=== PATIENT | female | born 1980 | race African-American/Black ===

== ENCOUNTER 2023-11-23 22:21 | Emergency (ER) | payer SELFPAY ==
[2023-11-23 22:21] VITALS: BMI 24.1
[2023-11-23 22:31] VITALS: BP 142/80
[2023-11-23 22:52] LABS: Hematocrit 34.3 % (37.0-47.0); Hemoglobin 11.4 g/dL (12.0-16.0); Mean Corp Hgb Conc. 33.2 g/dL (33.0-37.0); Mean Corpuscular Hgb 25.9 pg (27.0-31.0); Mean Platelet Volume 9.9 fL (7.4-10.4); Platelet Count 401 10^3/uL (130-400); Red Cell Dist. Width 14.7 % (11.5-14.5); White Blood Cell Count 6.5 10^3/uL (4.8-10.8)
[2023-11-23 23:02] LABS: HCG, Serum Qualitative Screen Negative
[2023-11-23 23:12] LABS: Blood Urea Nitrogen 10 mg/dl (7-17); Calcium 10.2 mg/dl (8.4-10.2); Carbon Dioxide 21 mmol/L (22-30); Chloride 106 mmol/L (98-107); Glucose 98 mg/dl (70-99); Potassium 4.5 mmol/L (3.5-5.1); Sodium 138 mmol/L (135-145); eGFR > 60.00
--- NOTE | 2023-11-24 01:20 | ED.BBFEXPP ---
HPI- Blood/Body Fluid Exposure
General
Chief Complaint: Blood and Body Fluid Exposure
Source: patient
Exam Limitations: none
Time Seen by Provider: 11/24/23 01:03
Nursing documentation reviewed up to this point in time: agreed with
Travel History
Have you had any contact with someone who has COVID-19?: No
Do you have any symptoms of coronavirus? Fever > 100 degrees, chills, cough, shortness of breath, sore throat, loss of taste or smell, muscle aches, or headache?: No
History of Present Illness
Is this injury a work related problem?: No
Body fluid exposure: by needle stick
Needle was: contaminated small needle
Source of contamination is: unknown
Exposure deemed significant: Yes
Initial Comments:
This is a 43-year-old woman who states while she was in a public restroom in a [employer] this afternoon she reached for toilet paper that was sitting on top of the needle box in toilet stall and inadvertently suffered a puncture wound
from a needle that was jutting out of the needle box. Puncture wound to her right distal index digit. Injury occurred around 4 PM.
She spoke with a manager corporate communications of the store and the manager corporate communications did note that there was a fair amount of substance use/IV drug abuse in the area.
Patient admits to mild pain distal anterior right index finger and is concerned for possible foreign body, concerned that the needle broke off in her finger.
She has history of hypothyroidism maintained on methimazole and propranolol.
Past Medical History Pediatric
Past Medical History
Past Medical History Pediatric: other (Hyperthyroidism)
Past Surgical History
Past Surgical History Pediatric: other ( x 2, breast reduction with abdominoplasty)
Immunizations
Immunizations up to date: Yes (Patient reports up-to-date with Tdap as well as all routine/recommended imm)
Family/Social History
Family History: other (Noncontributory)
Tobacco: Non-smoker
Alcohol: Occasional (rare)
Drug: None
Pediatric Physical Exam
Physical Exam
Pediatric Physical Exam:
PHYSICAL EXAMINATION:
General: 43-year-old woman appears her stated age, bright and alert, pleasant, appears in no acute distress. Easily communicative.
Neuro: alert and oriented. no focal neurological deficits
Psychiatric: well kept. interactive and cooperative
Musculoskeletal: [Right index digit distal anterior aspect has a minute, barely perceptible puncture wound. There is no bleeding, no soft tissue swelling, no erythema. No palpable foreign body. There is full digit and hand
range of motion. Strength and sensation intact. Skin is otherwise warm and dry, normal color, good turgor.]
Course
Orders/Labs/Results
Orders:
Orders
11/23/23 22:30
Pt has had a significant HIV exposure? Routine
HIV Exposure is significant?: Yes
11/23/23 22:31
Test Result ONCE
11/23/23 22:40
BMP [Basic Metabolic Panel] Urgent
Complete Blood Count/No Diff Urgent
HCG, Serum Qualitative Screen Urgent
HIV Combo Urgent
Hepatitis B Surface Antibody Urgent
Hepatitis B Surface Antigen Urgent
Hepatitis C Antibody Urgent
11/24/23 01:19
Finger(s)/Thumb 2 View Rt [CR Finger(s)/thumb Min 2 Vw Rt] Urgent
Comment:
Reason For Exam: needle puncture wound R distal index digit
11/24/23 01:44
Emtricitabine/Tenofovir [Truvada Tablet] 1 tablet PO NOW STA
Raltegravir Potassium [Isentress] 400 mg PO NOW STA
11/24/23 01:46
Pt has had a significant HIV exposure? Routine
HIV Exposure is significant?: Yes
Comment: nonoccupational needle stick injury 4 pm yesterday 11/22
Abnormal Lab Results
11/23/23
22:40
Hgb 11.4 L g/dL
(12.0-16.0)
Hct 34.3 L %
(37.0-47.0)
MCV 78.0 L fL
(81.0-99.0)
MCH 25.9 L pg
(27.0-31.0)
RDW 14.7 H %
(11.5-14.5)
Plt Count 401 H 10^3/uL
(130-400)
Carbon Dioxide 21 L mmol/L
(22-30)
11/23/23 22:40
11/23/23 22:40
Vital Signs
Initial and Last Documented VS:
Initial Vital Signs
Temp Pulse Resp BP Pulse Ox
98.1 F 62 18 142/80 98
11/23/23 22:31 11/23/23 22:31 11/23/23 22:31 11/23/23 22:31 11/23/23 22:31
Last Documented Vital Signs
Temp Pulse Resp BP Pulse Ox
98.1 F 62 18 133/93 94
11/23/23 22:31 11/24/23 02:46 11/24/23 02:46 11/24/23 02:46 11/24/23 02:46
MDM/Problems Addressed
Differential Diagnosis Includes:
Patient has suffered a non occupational needlestick injury that is deemed significant risk for HIV thus recommend postexposure prophylaxis.
Discussed potential side effects including GI side effects, potential for elevated liver enzymes, rare risk for bone marrow suppression.
She follows regularly with her primary care physician and we discussed the importance of follow-up regarding hepatitis B immunity status as she may require hepatitis B vaccination booster. Follow-up regarding HIV screen and surveillance as well as
hepatitis C screening.
Routine labs show very mild anemia otherwise unremarkable. Normal renal function. hCG negative.
Will plan to start 3 drug antiretroviral regimen and plan to continue this for total of 28 days.
Chronic conditions affecting care: Other (Hyperthyroidism)
*Radiology
Radiology exam reviewed: preliminary read by ED provider (No evidence of foreign body nor fracture right index digit.)
*Pulse Oximetry
Patient hypoxic: no
*Critical Care Note
Total Time (30-74mins, 75-104mins- exclusive of procedures): Not Applicable
ED Attending Note
-
Portions of this chart may have been created with voice recognition software.� Occasional wrong word or��sound alike� substitutions may have occurred due to the inherent limitations of voice recognition software.
Discharge Plan
Departure
Patient Disposition: Home (Routine Discharge)
Date of Disposition: 11/24/23
Time of Disposition: 02:32
Patient with high blood pressure during this ER visit?: No
Condition: Good
Discharge Problem:
Needle stick injury of finger of right hand
Instructions: Blood or body fluid exposure
Prescriptions:
New
emtricitabine-tenofovir (TDF) [Truvada] 200-300 mg tablet
1 tab PO DAILY Qty: 27 0RF
Isentress 400 mg tablet
400 mg PO BID Qty: 56 0RF
No Action
meclizine 25 MG tablet
25 mg PO QIDPRN PRN (Reason: dizziness) Qty: 30 0RF
diclofenac sodium 75 MG tablet,delayed release (DR/EC)
75 mg PO BID PRN (Reason: pain, take with food) Qty: 30 0RF
prednisone 20 MG tablet
20 mg PO BID Qty: 10 0RF
azithromycin 250 MG tablet
250 mg PO DAILY Qty: 6 0RF
Referrals:
Jin Way DO [Family Provider] - Call in 1-3 days for appt
Stand Alone Forms: Bl/Fluid Consent/Declination, Blood Body/Fluid Exposure
Interventions
Interventions:
*Risk Screen - Suicide Last Done: 11/23/23 22:31
*General Assessment Last Done: 11/23/23 23:59
*Neglect/Abuse Screening Last Done: 11/23/23 22:31
ED- Fall Risk Assessment Last Done: 11/24/23 00:35
*ED COVID-19 Vaccine History Last Done: 11/23/23 23:58
*Nursing Disposition Last Done: 11/24/23 02:46
ED-EENT Assessment Last Done: 11/24/23 02:00
ED-Skin Assessment Last Done: 11/24/23 00:00
Discharge Date and Time
Discharge Date/Time: 11/24/23 02:47
Print Language: SERBIAN
[2023-11-24] MEDS: TRUVADA TABLET 1 TABLET PO (01:58)
[2023-11-24] MEDS: ISENTRESS 400 MG PO (01:58)
[2023-11-24 02:04] VITALS: BP 133/93
[2023-11-24 02:46] VITALS: BP 133/93
[2023-11-24 04:41] LABS: Hepatitis B Surface Antigen Negative (Negative)
[2023-11-24 04:58] LABS: Hepatitis B Surface Antibody Negative; Hepatitis C Antibody Negative (Negative)
[2023-11-24 05:14] LABS: HIV Combo Negative (Negative)
== END 2023-11-24 02:47 | disposition home or self-care (01) ==
LOC: EMR 22:21
PROVIDERS: EMERGENCY PHYSICIAN Emergency Medicine; FAMILY PHYSICIAN Family Medicine
DX: S61.230A Puncture wound without foreign body of right index finger without damage to nail, initial encounter (principal); W46.1XXA Contact with contaminated hypodermic needle, initial encounter; Z77.21 Contact with and (suspected) exposure to potentially hazardous body fluids; Y92.89 Other specified places as the place of occurrence of the external cause; D64.9 Anemia, unspecified; E05.90 Thyrotoxicosis, unspecified without thyrotoxic crisis or storm; Z79.899 Other long term (current) drug therapy
CPT/HCPCS: 99283; 73140; 80048; 84703; 85027; 86706; 86803; 87340; 87389

== ENCOUNTER 2023-12-06 01:03 | Emergency (ER) | payer OTHER, SELFPAY ==
[2023-12-06 01:05] VITALS: BP 134/85
[2023-12-06] MEDS: REGLAN 10 MG IV (01:53)
[2023-12-06 01:56] VITALS: BP 111/74
[2023-12-06 02:00] VITALS: BP 117/70
[2023-12-06 02:03] LABS: % Basophils 0.8 % (0-2); % Eosinophils 2.1 % (0-6); % Immature Granulocytes 0.2 % (0-0.5); % Lymphocytes 68.6 % (20.5-51.1); % Monocytes 9.7 % (1.7-9.3); % Neutrophils 18.6 % (42.2-75.2); Absolute Basophils 0.1 10^3/uL (0-0.2); Absolute Eosinophils 0.1 10^3/uL (0-0.7); Absolute Lymphocytes 4.2 10^3/uL (1.2-3.4); Absolute Monocytes 0.6 10^3/uL (0.1-0.6); Absolute Neutrophils 1.1 10^3/uL (1.4-6.5); Hematocrit 31.1 % (37.0-47.0); Hemoglobin 10.6 g/dL (12.0-16.0); Mean Corp Hgb Conc. 34.1 g/dL (33.0-37.0); Mean Corpuscular Hgb 26.6 pg (27.0-31.0); Mean Corpuscular Volume 78.1 fL (81.0-99.0); Mean Platelet Volume 10.3 fL (7.4-10.4); Nucleated Red Blood Cells % 0 %; Platelet Count 301 10^3/uL (130-400); Red Blood Cell Count 3.98 10^6/uL (4.20-5.40); Red Cell Dist. Width 14.5 % (11.5-14.5); White Blood Cell Count 6.1 10^3/uL (4.8-10.8)
[2023-12-06 02:16] LABS: ALT (SGPT) 23 U/L (0-35); AST (SGOT) 31 U/L (14-36); Albumin 4.5 g/dl (3.5-5.0); Alkaline Phosphatase 136 U/L (38-126); Blood Urea Nitrogen 13 mg/dl (7-17); Calcium 9.7 mg/dl (8.4-10.2); Carbon Dioxide 21 mmol/L (22-30); Chloride 108 mmol/L (98-107); Glucose 112 mg/dl (70-99); Potassium 4.1 mmol/L (3.5-5.1); Sodium 138 mmol/L (135-145); Total Bilirubin 0.4 mg/dl (0.2-1.3); Total Protein 7.6 g/dl (6.3-8.2); eGFR > 60.00
--- NOTE | 2023-12-06 02:30 | ED.GENMED ---
History of Present Illness
General
Chief Complaint: Allergic Reaction
Source: patient
Exam Limitations: none
Time Seen by Provider: 12/06/23 01:26
Nursing documentation reviewed up to this point in time: agreed with
Travel History
Have you had any contact with someone who has COVID-19?: No
Do you have any symptoms of coronavirus? Fever > 100 degrees, chills, cough, shortness of breath, sore throat, loss of taste or smell, muscle aches, or headache?: No
History of Present Illness
History of Present Illness:
Patient to ED with complaint of nausea and vomiting. SHe was seen in ED on 11/22 after sustaining a needlestick to her finger while in [place]. Unknown needle linux systems administrator. SHe was placed on prophylatic meds for HIV and has been following with her PCP
and ID. Given RX for zofran but states this has not helped Brought self to ED for eval.
Past History
Past History
ED Past Medical History: Hyperthyroidism and Other (Low vitamin D)
ED Past Surgical History: (x2)
Social History
Tobacco: Non-smoker
Alcohol: Occasional (rare)
Drug: None
Personal:
Employment: Not employed
Family History
Family History: Other (Noncontributory)
Review of Systems
Review of Systems
Allergies reviewed?: Yes
All Other Systems: ROS reviewed and negative except as documented in HPI and ROS
Constitutional: Reports no symptoms
EENT: Reports no symptoms
Respiratory: Reports no symptoms
Cardiac: Reports no symptoms
ABD/GI: Reports nausea and vomiting
: Reports no symptoms
Musculoskeletal: Reports no symptoms
Skin: Reports no symptoms
Neurological: Reports no symptoms
Psychiatric: Reports no symptoms
Phy Exam
General Physical Exam
General Presentation: well appearing and no apparent distress
General age: appears stated age
General Skin: warm and dry
General Habitus: normal
General Mental: alert
Gastrointestinal Exam
Gastrointestinal Exam: non tender and soft
Musculoskeletal Exam
Musculoskeletal Exam: full ROM and neuro vasc intact
Skin Exam
Skin Exam: normal color, warm/dry and no rash
Psychiatric Exam
Psychiatric Exam: normal mood/affect
Course
Orders/Labs/Results
Orders:
Orders
12/06/23 01:41
Metoclopramide [Reglan] 10 mg IV NOW STA
12/06/23 01:49
Complete Blood Count/With Diff Urgent
Comprehensive Metabolic Panel Urgent
12/06/23 02:36
0.9% Sodium Chloride 1000 ml [Nss] 1,000 ml IV BOLUS
Abnormal Lab Results
12/06/23
01:49
RBC 3.98 L 10^6/uL
(4.20-5.40)
Hgb 10.6 L g/dL
(12.0-16.0)
Hct 31.1 L %
(37.0-47.0)
MCV 78.1 L fL
(81.0-99.0)
MCH 26.6 L pg
(27.0-31.0)
Absolute Neuts (auto) 1.1 L 10^3/uL
(1.4-6.5)
Absolute Lymphs (auto) 4.2 H 10^3/uL
(1.2-3.4)
Neutrophils % 18.6 L %
(42.2-75.2)
Lymphocytes % 68.6 H %
(20.5-51.1)
Monocytes % 9.7 H %
(1.7-9.3)
Chloride 108 H mmol/L
(98-107)
Carbon Dioxide 21 L mmol/L
(22-30)
Glucose 112 H mg/dl
(70-99)
Alkaline Phosphatase 136 H U/L
(38-126)
12/06/23 01:49
12/06/23 01:49
Vital Signs
Initial and Last Documented VS:
Initial Vital Signs
Temp Pulse Resp BP Pulse Ox
98.0 F 71 18 134/85 100
12/06/23 01:05 12/06/23 01:05 12/06/23 01:05 12/06/23 01:05 12/06/23 01:05
Last Documented Vital Signs
Temp Pulse Resp BP Pulse Ox
98.0 F 71 16 117/74 100
12/06/23 01:05 12/06/23 01:57 12/06/23 01:57 12/06/23 04:00 12/06/23 04:15
*Critical Care Note
Total Time (30-74mins, 75-104mins- exclusive of procedures): Not Applicable
Update Note
Update Note:
Given IVF and Reglan in dept. Labs reviewed. Mild decrease in hemaglobin. Chemistries unchanged. WIll change anti-emetic to compazine, encourage po fluids and she will follow up with PCP and ID on Friday. SHe is agreeable to plan.
ED Attending Note
-
Portions of this chart may have been created with voice recognition software.� Occasional wrong word or��sound alike� substitutions may have occurred due to the inherent limitations of voice recognition software.
Discharge Plan
Departure
Patient Disposition: Home (Routine Discharge)
Patient with high blood pressure during this ER visit?: No
Condition: Good
Covid-19: Not Applicable
Discharge Problem:
Nausea and vomiting
Instructions: Nausea and Vomiting, Adult (DC)
Prescriptions:
New
prochlorperazine maleate [Compazine] 10 mg tablet
10 mg PO Q8H PRN (Reason: nausea and vomiting) Qty: 20 0RF
No Action
meclizine 25 MG tablet
25 mg PO QIDPRN PRN (Reason: dizziness) Qty: 30 0RF
diclofenac sodium 75 MG tablet,delayed release (DR/EC)
75 mg PO BID PRN (Reason: pain, take with food) Qty: 30 0RF
prednisone 20 MG tablet
20 mg PO BID Qty: 10 0RF
azithromycin 250 MG tablet
250 mg PO DAILY Qty: 6 0RF
emtricitabine-tenofovir (TDF) [Truvada] 200-300 mg tablet
1 tab PO DAILY Qty: 27 0RF
Isentress 400 mg tablet
400 mg PO BID Qty: 56 0RF
Referrals:
Jin Way DO [Family Provider] - Follow up in 2-3 days
Activity Restrictions/Additional Instructions:
Stop zofran. May take Compazine 10mg every 8 hours as needed for nausea. FOllow up with infectious disease on Friday.
Interventions
Interventions:
*Risk Screen - Suicide Last Done: 12/06/23 02:51
*General Assessment Last Done: 12/06/23 02:51
*Neglect/Abuse Screening Last Done: 12/06/23 01:12
ED- Fall Risk Assessment Last Done: 12/06/23 02:51
*ED COVID-19 Vaccine History Last Done: 12/06/23 01:11
*Nursing Disposition Last Done: 12/06/23 04:32
ED- Cardiac Assessment Last Done: 12/06/23 02:51
ED- Pulmonary Assessment Last Done: 12/06/23 02:51
ED-Skin Assessment Last Done: 12/06/23 02:51
Discharge Date and Time
Discharge Date/Time: 12/06/23 04:36
Print Language: PORTUGUESE
[2023-12-06] MEDS: NSS 1000 IV (02:40)
[2023-12-06 03:00] VITALS: BP 103/54
[2023-12-06 04:00] VITALS: BP 117/74
== END 2023-12-06 04:36 | disposition home or self-care (01) ==
LOC: EMR 01:03
PROVIDERS: Nurse Practitioner; EMERGENCY PHYSICIAN Emergency Medicine; FAMILY PHYSICIAN Family Medicine
DX: R11.2 Nausea with vomiting, unspecified (principal)
CPT/HCPCS: 99284; 96374; 96361; 80053; 85025

== ENCOUNTER → 2024-05-27 11:12 | Outpatient (REF) | payer OTHER, SELFPAY | LOC: HWRAD 11:12 | PROVIDERS: ATTENDING PHYSICIAN Obstetrics & Gynecology; FAMILY PHYSICIAN Family Medicine | DX: D25.9 Leiomyoma of uterus, unspecified (principal) | CPT/HCPCS: 76830; 76856 ==

== ENCOUNTER → 2024-07-05 15:28 | Outpatient (REF) | payer OTHER, SELFPAY | LOC: MRI 3T 15:28 | PROVIDERS: ATTENDING PHYSICIAN Obstetrics & Gynecology; FAMILY PHYSICIAN Family Medicine | DX: D25.9 Leiomyoma of uterus, unspecified (principal) | CPT/HCPCS: 72197; A9575 ==

== ENCOUNTER 2024-07-23 04:04 | Emergency (ER) | payer OTHER, SELFPAY ==
[2024-07-23 04:05] VITALS: BP 133/92
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
== END 2024-07-23 06:54 | disposition home or self-care (01) ==
LOC: EMR 04:04
PROVIDERS: EMERGENCY PHYSICIAN Student in an Organized Health Care Education/Training Program; FAMILY PHYSICIAN Family Medicine
DX: F41.9 Anxiety disorder, unspecified (principal); R45.851 Suicidal ideations
CPT/HCPCS: 99283

== ENCOUNTER → 2024-10-05 13:12 | Outpatient (REF) | payer OTHER, SELFPAY | LOC: HWEVLT 13:12 | PROVIDERS: ATTENDING PHYSICIAN Radiology Diagnostic Radiology | DX: I83.893 Varicose veins of bilateral lower extremities with other complications (principal) | CPT/HCPCS: 93970 ==